=== PATIENT | female | born 1955 | race Caucasian/White ===

== ENCOUNTER 2018-06-11 16:34 | Outpatient (CLI) | payer BC ==
--- NOTE | 2018-06-11 17:39 | ULT ---
LEFT UPPER EXTREMITY VENOUS ULTRASOUND: 06/11/18 COMPARISON: None. HISTORY: Left arm pain and thrombosis. TECHNIQUE: Multiplanar hill scale and color doppler images were obtained in a left upper extremity venous ultras ound. Spectral analysis of the doppler waveforms were performed. FINDINGS: The left internal jugular vein demonstrates normal compression and flow without evidence of thrombus . The left subclavian vein demonstrates normal flow and augmentation without evidence of thrombus. Th e left axillary and brachial veins demonstrate normal compression, flow, and augmentation without lisbeth dence of thrombus. The venous structures of the distal elbow are unremarkable. The basilic and cephalic veins are patent . IMPRESSION: No evidence of left upper extremity DVT. POS: [facility]
== END 2018-06-11 16:35 | disposition home or self-care (01) ==
LOC: ULT 16:34
PROVIDERS: ATTEND Family Medicine
DX: I82.90 Acute embolism and thrombosis of unspecified vein (principal); R58 Hemorrhage, not elsewhere classified; Z82.49 Family history of ischemic heart disease and other diseases of the circulatory system

== ENCOUNTER 2021-11-09 10:14 | Outpatient (CLI) | payer MEDICARE | END 2021-11-09 10:15 | disposition home or self-care (01) | LOC: BICMAMMO 10:14 | PROVIDERS: ATTEND Internal Medicine Rheumatology | DX: M81.0 Age-related osteoporosis without current pathological fracture (principal); M54.6 Pain in thoracic spine; M47.814 Spondylosis without myelopathy or radiculopathy, thoracic region; M85.851 Other specified disorders of bone density and structure, right thigh | CPT/HCPCS: 72070; 77080 ==